=== PATIENT | female | born 1990 | race African-American/Black ===

== ENCOUNTER 2016-04-24 13:40 | Emergency (ER) | payer MEDICAID, OTHER ==
[~2016-04-24] VITALS: Ht 170.2 cm; Wt 54.5 kg
[~2016-04-24 13:40] MED LIST: CEFTIN 250250 MG/TAB PO; CEFTIN500 MG PO; CIPRO 500MG TA500 MG PO; DEPO-MEDRO20 MG/1 ML IJ; DEPO-PROVER150 MG/M1; DOXYCYCLINE HY100 MG PO; FLAGYL500 MG PO; LORTAB 5/500 501 TAB PO; MACROBID 1100 MG/CAP PO; MOTRIN 600600 MG/TAB PO; NO HOME MEDICATIONS; NORCO 325 MG-51 TAB PO; PERCOCET 325 MG1 TA2 PO; PRENATAL PLUS1 TA2 PO; SENOKOT S 50 MG1 TAB PO; ZOFRAN 4MG T4 MG/TAB PO; ZOFRAN ODT4 MG PO
[2016-04-24 13:44] VITALS: BP 124/80; PULSE 84; TEMP 98.2
== END 2016-04-24 15:13 | disposition home or self-care (01) ==
LOC: COL.ER 13:40
DX: S20.221A Contusion of right back wall of thorax, initial encounter (principal); F17.210 Nicotine dependence, cigarettes, uncomplicated; W22.8XXA Striking against or struck by other objects, initial encounter

== ENCOUNTER 2016-07-18 11:42 | Emergency (ER) | payer BC, MEDICAID, OTHER ==
[~2016-07-18] VITALS: Ht 170.2 cm; Wt 52.7 kg
[2016-07-18 11:43] VITALS: BP 130/51; PULSE 77; TEMP 98.5
== END 2016-07-18 13:03 | disposition home or self-care (01) ==
LOC: COL.ER 11:42
DX: M54.89 Other dorsalgia (principal); Z32.01 Encounter for pregnancy test, result positive